=== PATIENT | female | born 1975 | race African-American/Black ===

== ENCOUNTER 2020-09-28 22:03 | Emergency (ER) | payer OTHER ==
[~2020-09-28] VITALS: Ht 170.2 cm; Wt 128.4 kg
[2020-09-28] MEDS ORDERED: KETOROLAC TROMETHAMINE 30 MG/ML VIAL IV STA (22:41)
[2020-09-28] MEDS ORDERED: KETOROLAC TROMETHAMINE 30 MG/ML VIAL ONE (23:21)
[2020-09-28] MEDS ORDERED: TYLENOL # 31 EA PO (23:35)
[2020-09-28 23:52] VITALS: BP 199/104
== END 2020-09-28 23:52 | disposition home or self-care (01) ==
LOC: FSED 22:51
DX: R10.30 Lower abdominal pain, unspecified (principal); M54.5 Low back pain; N13.2 Hydronephrosis with renal and ureteral calculous obstruction; I10 Essential (primary) hypertension
CPT/HCPCS: 74176; 99284; J1885